=== PATIENT | female | born 1965 | race African-American/Black ===

== ENCOUNTER 2024-08-15 17:47 | Inpatient (IN) | payer OTHER ==
[2024-08-15 18:39] LABS: BASOPHILS # 0.01 x10^3/uL (0.01-0.08); EOSINOPHIL % 0.6 % (0.7-5.8); EOSINOPHILS # 0.02 x10^3/uL (0.04-0.36); HEMATOCRIT 34.7 % (34.1-44.9); HEMOGLOBIN 11.5 g/dL (11.2-15.7); MCHC 33.1 g/dl (32.2-35.5); MEAN CELL VOLUME 91.3 fl (79.4-94.8); MONOCYTE # 0.32 x10^3/uL (0.24-0.86); PLATELET COUNT 232 x10^3/uL (182-369); RDW 14.1 % (12.3-16.6)
[2024-08-15 18:48] LABS: INR 1.16 (0.83-1.09); PROTHROMBIN TIME (PATIENT) 12.8 SEC (9.7-13.0)
[2024-08-15 18:51] LABS: ACTIVATED PTT 28.5 SECONDS (25.2-36.5)
[2024-08-15 19:01] LABS: POTASSIUM 3.5 mmol/L (3.5-5.1)
[2024-08-15 19:02] LABS: CALCIUM 9.1 mg/dL (8.5-10.1)
[2024-08-15 19:04] LABS: ALBUMIN 3.1 g/dl (3.4-5.0); BLOOD UREA NITROGEN 13.5 mg/dL (7-18)
[2024-08-15 19:07] LABS: CREATININE 0.7 mg/dL (0.55-1.3)
[2024-08-15 19:09] LABS: BILIRUBIN,TOTAL 0.2 mg/dL (0.2-1); TOT PROT 5.7 g/dl (6.4-8.2)
[2024-08-15] MEDS: SODIUM CHLORIDE 1,000 ML IV SCH (19:20)
[2024-08-15 20:28] LABS: URINE APPEARANCE CLEAR; URINE BILIRUBIN NEGATIVE (NEGATIVE); URINE COLOR YELLOW; URINE GLUCOSE (UA) NEGATIVE (NEGATIVE); URINE KETONE NEGATIVE (NEGATIVE); URINE NITRITE NEGATIVE (NEGATIVE); URINE PROTEIN TRACE (NEGATIVE)
[2024-08-15 20:29] LABS: EPI CELLS 8.5 /uL (0-25.1); HYALINE CASTS 5.02 /uL (0-3.1); URINE BACTERIA 141.3 /uL (0-1359); URINE LEUK ESTERASE NEGATIVE (NEGATIVE)
[2024-08-15] MEDS ORDERED: levETIRAcetam 500 MG/5 ML INJECTION VIAL IVPB ONE (23:43)
[2024-08-15] MEDS ORDERED: LORazepam 2 MG/ML SDV VIAL IVPUSH PRN (23:43)
[2024-08-16 00:48] VITALS: BMI 18.2
[2024-08-16] MEDS: levETIRAcetam 500 MG/5 ML INJECTION VIAL IVPB ONE (02:57)
[2024-08-16 07:48] LABS: ABSOLUTE IMMATURE GRANULOCYTES 0.01 x10^3/uL (0.0-0.031); BASOPHILS # 0.02 x10^3/uL (0.01-0.08); EOSINOPHIL % 0.7 % (0.7-5.8); EOSINOPHILS # 0.03 x10^3/uL (0.04-0.36); HEMOGLOBIN 13.1 g/dL (11.2-15.7); MCHC 32.8 g/dl (32.2-35.5); MEAN CELL VOLUME 91.7 fl (79.4-94.8); MEAN PLT VOLUME 10.2 fl (9.4-12.3); MONOCYTE # 0.41 x10^3/uL (0.24-0.86); MONOCYTE % 9.9 % (4.7-12.5); PLATELET COUNT 261 x10^3/uL (182-369); RDW 14.3 % (12.3-16.6)
[2024-08-16 08:33] LABS: POTASSIUM 3.8 mmol/L (3.5-5.1)
[2024-08-16 08:35] LABS: BLOOD UREA NITROGEN 10.3 mg/dL (7-18); CALCIUM 8.9 mg/dL (8.5-10.1); MAGNESIUM 2.2 mg/dL (1.8-2.4)
[2024-08-16 08:39] LABS: CREATININE 0.5 mg/dL (0.55-1.3); PHOSPHOROUS 4.6 mg/dL (2.5-4.9)
[2024-08-16 08:40] LABS: BILIRUBIN,TOTAL 0.4 mg/dL (0.2-1); TOT PROT 5.7 g/dl (6.4-8.2)
[2024-08-16] MEDS ORDERED: LISINOPRIL 10 MG TABLET PO SCH (10:00)
[2024-08-16] MEDS: ENOXAPARIN NA (PORCINE) 80 MG/0.8 ML DISP.SYRIN SQ SCH (10:23)
[2024-08-16] MEDS: ASPIRIN SUPPOSITORY 600 MG SUPP.RECT RC SCH (11:39)
[2024-08-16 15:53] VITALS: RESP 18
[2024-08-16] MEDS: levETIRAcetam 500 MG/5 ML INJECTION VIAL IVPB SCH (21:46)
[2024-08-16] MEDS ORDERED: ROSUVASTATIN CA 40 MG TABLET PO SCH (22:00)
[2024-08-16] MEDS: ROSUVASTATIN CA 20 MG TABLET PO SCH (22:34)
[2024-08-17 07:42] LABS: HEMATOCRIT 34.7 % (34.1-44.9); HEMOGLOBIN 11.6 g/dL (11.2-15.7); MCHC 33.4 g/dl (32.2-35.5); MEAN CELL VOLUME 91.3 fl (79.4-94.8); MEAN PLT VOLUME 10.1 fl (9.4-12.3); PLATELET COUNT 239 x10^3/uL (182-369)
[2024-08-17 07:50] LABS: POTASSIUM 3.9 mmol/L (3.5-5.1)
[2024-08-17 07:53] LABS: INR 1.13 (0.83-1.09); PROTHROMBIN TIME (PATIENT) 12.3 SEC (9.7-13.0)
[2024-08-17 07:59] LABS: CALCIUM 8.6 mg/dL (8.5-10.1)
[2024-08-17 08:00] LABS: BILIRUBIN,TOTAL 0.5 mg/dL (0.2-1); TOT PROT 5.6 g/dl (6.4-8.2)
[2024-08-17 08:01] LABS: CREATININE 0.6 mg/dL (0.55-1.3)
[2024-08-17] MEDS ORDERED: levETIRAcetam 500 MG TABLET (FP) PO SCH (10:00)
[2024-08-17] MEDS: levETIRAcetam 500 MG TABLET (FP) PO SCH (10:20)
[2024-08-17 18:21] VITALS: BP 108/68; PULSE 62; TEMP 97.7
== END 2024-08-17 19:50 | disposition home or self-care (01) | DRG 53 ==
LOC: JER 17:47 → JERBED 20:49 → J4W 23:53
PROVIDERS: ADMIT Hospitalist; ATTEND Internal Medicine
DX: R56.9 Unspecified convulsions (principal); G45.8 Other transient cerebral ischemic attacks and related syndromes; E78.5 Hyperlipidemia, unspecified; D68.51 Activated protein C resistance; I82.413 Acute embolism and thrombosis of femoral vein, bilateral; D68.59 Other primary thrombophilia; I10 Essential (primary) hypertension; R47.81 Slurred speech; R47.1 Dysarthria and anarthria; I69.351 Hemiplegia and hemiparesis following cerebral infarction affecting right dominant side
CPT/HCPCS: 36415; 70450-TC; 70496-TC; 70498-TC; 70551-TC; 80053; 80061; 81003; 82550; 82962; 83036; 83735; 84100; 84484; 85025; 85027; 85610; 85730; 86850; 86900; 86901; 93005; 93010; 93970-TC; 97116-GP; 97162-GP; 99285-25